=== PATIENT | female | born 1990 | race Caucasian/White ===

== ENCOUNTER 2025-01-04 17:40 | Emergency (ER) | payer SELFPAY ==
[2025-01-04] MEDS: Orphenadrine 60 MG/2 ML Inj IM ONE (21:25)
[2025-01-04] MEDS: Ketorolac 30 MG/ML SDV IM ONE (21:25)
== END 2025-01-04 21:33 | disposition home or self-care (01) ==
LOC: MW.ED 17:40
DX: S06.0X0A Concussion without loss of consciousness, initial encounter (principal); M79.601 Pain in right arm; M79.605 Pain in left leg; Z75.3 Unavailability and inaccessibility of health-care facilities; W00.9XXA Unspecified fall due to ice and snow, initial encounter
CPT/HCPCS: 70450; 72125; 73060; 73080; 73110; 96372; 99284; A9270; J1885; J2360